=== PATIENT | female | born 1965 | race Caucasian/White ===

== ENCOUNTER 2020-11-16 12:49 | Outpatient (CLI) | payer SELFPAY ==
--- NOTE | 2020-11-17 08:24 | ONC CON_ITS ---
Dr. Jameson New Patient Note Patient: Renee Cano Unit #: [id number]: 1965 Dicatated By: Woody Jameson M.D.Date of Visit: Nov 16, 2020 Onc MED New Patient/Consult Referring Physician: Dr. Roosevelt Mcneill M.D. Chief Complaint: Metastatic malignancy. History of Present Illness: This is a 55-year-old woman who has evidence on imaging studies of metastatic malignancy in multiple sites. She has some COPD and she has previously had multiple episodes of pneumonia. She had presented to the emergency room in [place] on 10/28/2020 with left sciatic pain. She had tenderness in left gluteal area causing reproducible pain in the left thigh. She also complained of right hand weakness, though her exam at that time was unrevealing. She was treated symptomatically with ibuprofen and cyclobenzaprine. She returned to the emergency room on 11/02/2020 with complaints of weakness in the right arm and hand and with associated muscle spasms. She also reported some difficulty speaking. Her noncontrast head CT showed findings suspicious for a potential left occipital infarct. Also noted was bilateral frontoparietal white matter edema with evidence of slight mass-effect and underlying space-occupying lesion was suspected. Chest x-ray showed a 3.4 cm mass in the left midlung which appeared to be consistent with primary lung neoplasm. Her chest CT showed a highly spiculated mass in the left lung centered on the major fissure and involving the upper lobe and superior segment lower lobe. It measured 3.7 x 3.2 cm. A separate distinct nodule in the upper lobe measured 9 mm. A left hilar lymph node was borderline enlarged measuring 1.4 x 0.6 cm. A 16mm enhancing nodule was noted within the medial left breast and a superficial nodule in the upper right breast measured 8 mm. These were concerning for metastases, and there was probable metastatic disease noted in the left adrenal gland. Further evaluation with PET/CT on 11/11/2020 showed a hypermetabolic left upper lobe mass measuring 3.3 x 2.7 cm,, SUV 12.9, and a second satellite nodule in the left upper lobe measuring 8 mm, also FDG positive. Malignant lesions were noted in the breasts bilaterally with the dominant lesion in the medial left breast measuring 1.4 cm, SUV 13.4. There were bilateral adrenal metastases. Also noted were too large complex cystic abdominal masses with the superior mass measuring 14.1 x 8.2 cm and the more inferior lesion measuring 11.2 x 13.7 cm. The latter was noted to have a hypermetabolic component in it's left lateral aspect with SUV 12.8. A malignant implant was noted deep to the left gluteus iván muscle with two bilateral malignant omental implants also noted. She is seen for further management. Her main complaint is the pain in the left lower back radiating down her left leg. At this point she is just managing it with ibuprofen. She also continues to have weakness in her right hand, now to the point that she is no longer able to use it. She has tired and she has very limited activity. ECOG score is three. She still has good appetite. She says she is hungry all the time. Her weight is stable. She has no fever or night sweats. She does not complain of shortness of breath, cough, or chest pain. She is not having nausea. She does have some acid reflux which she has been trying to manage with Rolaids. She was having constipation, but her bowel function is okay now. She has frequent urination. She has no other joint or bone pain. She was having headache in the frontal area, but that has improved now. She is having difficulty sleeping because of the pain. Past Medical History: She has chronic obstructive pulmonary disease and she has had multiple prior episodes of pneumonia. She has had no other ongoing medical illnesses. Past Surgical History: Her surgical/procedural history includes cataract excisions, section x 2, and tubal ligation. Medications: Ibuprofen 1 (200 mg) Capsule Oral four times a day Allergies: predniSONE Social History: Ms. 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. She has a history of smoking 1 pack of cigarettes daily for 40 years. She does not drink alcohol. Family History: Father of liver cancer. Mother with complications following an abdominal surgery. She had a total of 5 brothers and 3 sisters. One brother of throat cancer and another of heart disease. Her remaining brothers all have coronary artery disease. Review Of Symptoms: Constitutional - She has been feeling very tired and she has very limited activity. She still has good appetite. She says she is hungry all the time. Her weight has been stable. She has no fever or night sweats. ECOG score is 3, Eyes - She recently got new glasses, ENMT - No other visual complaints. No hearing loss or tinnitus. No sinus congestion/drainage. No mouth sores. No sore throat or difficulty swallowing, Hematologic/Lymphatic - She has easy bruising, Respiratory - No shortness of breath. No cough. No pleuritic pain or hemoptysis, Cardiovascular - No angina pain. No palpitations, Gastrointestinal - No nausea or vomiting. She has acid reflux, which she has been trying to manage with Rolaids. She has constipation. No blood in the stool or black stools, Genitourinary (F) - No dysuria or hematuria. She has urinary frequency. No urgency or incontinence, Musculoskeletal - She has been having pain in the left lower back radiating down the left leg, Integumentary - No skin rash or other skin changes, Neurologic - She was having headache in the frontal area, that has resolved. No dizziness. She complains that her right hand is weak and feels numb. No other focal neurologic symptoms, Psychiatric - No anxiety or depression. She is having difficulty sleeping due to the pain. Vital Signs: Performed on Nov 16, 2020 15:45: 8, 0, 19.84, 1.40 sq.m, 60 in, 97 %, 95 /min, 18 /min, 105/71 mm(hg), 99 F (HIGH), and 101.6 lbs (HIGH). Physical Examination: Constitutional - She appears generally weak, Eyes - Sclerae nonicteric. Conjunctivae clear, ENMT - There is a slight coating on the tongue. There are no other lesions noted in the oral cavity, Neck - No mass or thyromegaly, Hematologic/Lymphatic - No cervical or clavicular adenopathy, Respiratory - Lungs are clear with some decrease in air movement bilaterally, Cardiovascular - Heart rhythm is regular. There is no murmur, gallop, or rub noted, Breasts - There are small firm nodules palpable in the superior aspect of both breasts. There is no axillary adenopathy noted, Abdomen - Soft and non-tender. Liver and spleen are not enlarged. There is no abdominal mass noted and there is no obvious ascites. There is no inguinal adenopathy, Back/Spine - The spine shows no bony tenderness. There is mild tenderness in the left lower back, Extremities - No edema, Integumentary - No rashes. No suspicious skin lesions noted, Neurologic - There is significant weakness of the right hand. The right leg strength appears to be intact. Lab/Imaging: CBC showed hemoglobin 13.6 g, white blood cell count 13,500, and platelet count 457,000. Comprehensive metabolic profile showed normal renal function with BUN nine and creatinine 0.56 mg/dL. Bilirubin and liver enzymes were normal. Albumin was normal at 3.9 g/dL with calcium 9.8 mg/dL. TSH was normal at 2.54 ???IU/mL. Problem List: 1. Patient with multiple sites of metastatic malignancy. As yet there is no tissue diagnosis, and a definite primary site has not been established. 2. She has weakness in the right hand which is almost certainly due to metastatic brain involvement. 3. She has pretty severe pain in the left lower back radiating down the left leg, also due to metastatic involvement. 4. She has underlying COPD. 5. She has GERD symptoms. Problems Addressed with this Encounter and Plan: Patient with multiple sites of metastatic malignancy. As yet there is no tissue diagnosis, and a definite primary site has not been established. She has pretty severe pain in the left lower back radiating down the left leg, which is clearly due to metastatic involvement. She has weakness in the right hand which is almost certainly due to metastatic brain involvement. I reviewed the PET/CT with the radiologist, and it does appear that the large cystic masses in the abdomen/pelvis region are very suspicious for primary ovarian cancer. The dominant left lung lesion, though, is also suspicious for primary malignancy. The breast lesions would appear to be most likely metastatic, and that may be the easiest source for a biopsy. The gluteal metastatic lesion would also potentially be amenable to needle biopsy. She is scheduled to have a brain MRI tomorrow and I am going to go ahead and schedule for ultrasound directed biopsy of the left breast mass. I will check a CA-125 level when she comes in for the MRI. In the meantime, she will be started on dexamethasone 4 mg 4 times daily and I also will start fluconazole, she does have evidence of oral candidiasis. In addition, she will be given a prescription for pantoprazole 40 mg daily for her GERD symptoms. Recommendations for treatment will depend on the primary site of the malignancy and on complete pathologic analysis, which will include next generation sequencing and PD-L1 expression. However, she is advised that this is a metastatic and incurable malignancy. I reviewed potential options for systemic therapies which may include chemotherapy, targeted therapy, and/or immunotherapy. Radiation may be useful for treating specific sites of disease, occluding the brain and the areas of involvement in the left sacral area. Signed By: Woody Jameson M.D. <<Signature on File>>
== END 2020-11-16 12:50 | disposition home or self-care (01) ==
LOC: ONCMED 13:00
PROVIDERS: PCP Nurse Practitioner Family; Visit Provider Internal Medicine Medical Oncology
DX: C79.9 Secondary malignant neoplasm of unspecified site (principal); C80.1 Malignant (primary) neoplasm, unspecified; R53.1 Weakness; M54.5 Low back pain; J44.9 Chronic obstructive pulmonary disease, unspecified; K21.9 Gastro-esophageal reflux disease without esophagitis
CPT/HCPCS: 99205

== ENCOUNTER 2020-11-17 10:39 | Outpatient (CLI) | payer SELFPAY ==
--- NOTE | 2020-11-17 10:42 | MR_ITS ---
WS: [id number] MRI BRAIN WITH AND WITHOUT CONTRAST HISTORY: LESION OF BRAIN COMPARISON: CT head 11/02/2020 TECHNIQUE: Multiplanar imaging performed through the brain with MultiHance 10 ml's IV. No acute infarct. There are are numerous enhancing metastatic lesions throughout the brain. Supratent orial and infratentorial enhancing lesions. Some of these masses are ring-enhancing and others are so lid with necrotic component centrally. The largest mass with central necrosis and thick asymmetric ri m-enhancing extends over a length of 2.8 cm x 3.6 x 4.5 cm and is centered in the LEFT frontoparietal junction with a large amount of surrounding edema. The edema extends to the lateral ventricle and th ere is mild mass effect on the occipital horn of the ventricle. Several ring-enhancing lesions are no dickson in the cerebellum. These lesions are not hemorrhagic. Metastatic lesions in all lobes of the brai n. Indeterminate for 2 mm metastatic lesion in the LEFT hannah. No inferior displacement of cerebellar tonsils. There is mild mass effect upon the ventricles. No mid line shift. Temporal horns are not dilated. Paranasal sinuses: Mild mucoperiosteal thickening in the posterior RIGHT mastoid air cells. Mastoid air cells: Normal. Calvarium and scalp: Normal. MR/MR head wo/w con [id number] IMPRESSION: 1. Innumerable metastatic lesions within the brain as described above. These r paulo in size from a few millimeters in diameter with the largest mass in the LE FT frontoparietal region measuring 2.8 x 3.6 x 4.5 cm. 2. Large amount of surrounding edema involving the larger metastatic lesions. No midline shift at this time. There is very mild mass effect upon the lateral ventricles. Notified Carmenza Oropeza at 11/17/2020 12:[address] Jameson at 11/17/2020 12:15 PM.
[2020-11-17] MEDS: gadobenate dimeglumine 20 mL vial IV (11:36)
[2020-11-17 11:43] LABS: INR 0.97 (0.8-1.2)
[2020-11-17 12:02] LABS: CA 125 336.8 U/mL (0-35)
== END 2020-11-17 10:40 | disposition home or self-care (01) ==
LOC: ONCMED 10:41
PROVIDERS: Internal Medicine Medical Oncology; PCP Nurse Practitioner Family; Visit Provider Nurse Practitioner Family
DX: G93.9 Disorder of brain, unspecified (principal)
CPT/HCPCS: 36415; 70553; 85610; 86304; A9577

== ENCOUNTER 2020-11-21 06:03 | Outpatient (RCR) | payer SELFPAY ==
--- NOTE | 2020-11-20 15:47 | N.ONRAD NP_ITS ---
Radiation Oncology Consultation Patient Name: Renee Cano Date of : 1965 Date of Service: 11/20/2020 Attending Physician: Yemi Archuleta M.D. Renee Cano was seen in consultation this afternoon at the request of Woody Jameson M.D. for consideration of palliative cranial radiotherapy for the management of a newly diagnosed probable lung cancer with brain metastases. She was evaluated on October 28, 2020 at the [facility] Emergency Department with muscle spasms of the right hand. She was discharged with follow-up instructions to obtain an appointment with her primary care physician. She returned to the emergency department on November 02, 2020 with right upper extremity weakness with associated spasms. Neurological exam identified a pronator drift. A CT of the head without contrast demonstrated bilateral white matter edema, left occipital edema, and right temporal lobe edema with subtle mass-effect noted. A chest radiograph identified a 3.3 cm mass in the left hilar region and a 1 cm nodule in the left upper lobe of the lung. A CT of the chest revealed a 3.7 cm x 3.2 cm spiculated mass and a 9 mm nodule within the left upper lobe of the lung, a left hilar lymph node measuring 1.4 cm, a 1.6 cm enhancing nodule within the left breast, and 8 mm nodule in the right breast, hypoattenuating hepatic lesions likely cysts, and a 2.6 cm left adrenal gland mass. A PET CT performed on November 11, 2020 confirmed a 3.3 cm left upper lobe mass with a maximum SUV of 12.9, a satellite nodule measuring 8 mm with FDG avidity, a 1.4 cm left breast lesion with a (SUV 13.4), a 7 mm right breast lesion (SUV 6.3), bilateral adrenal metastases, abdominal masses measuring 14.1 cm x 8.2 cm and 11.2 cm x 13.7 cm (SUV 12.8), omental implants, and a left gluteal implant. A CA-125 level was 330 6.8U/mL (normal less than 35 U/mL). An MRI of the brain obtained on November 17, 2020 confirmed numerous enhancing metastatic lesions with the largest mass measuring 2.8 cm x 3.6 cm x 4.5 cm left frontoparietal region. Cerebral edema was noted surrounding the larger metastases. The patient was evaluated for palliative cranial radiotherapy. Following a discussion concerning Ms. Cano??? MRI brain, an attempt at palliative cranial radiotherapy is warranted. I would recommend a two week course of radiotherapy. A computed tomographic radiotherapy planning scan in the treatment position will be performed to identify the clinical tumor volume. She has been prescribed a glucocorticoid for cerebral edema and a proton pump inhibitor prophylactically. The potential toxicities of brain radiotherapy were reviewed. The patient has verbalized understanding would like to proceed as recommended. The patient???s treatment plan was discussed with Woody Jameson M.D. Signed by: Dr. Yemi Archuleta 11/21/2020 10:41:16 AM
--- NOTE | 2020-11-21 | CT_ITS ---
Radiation Therapy Planning CT images; total exam DLP: 684.83 mGy-cm MTDD
== END 2020-11-22 23:59 | disposition home or self-care (01) ==
LOC: ONCMED 06:03
PROVIDERS: PCP Nurse Practitioner Family; Visit Provider Radiology Radiation Oncology
DX: Z51.0 Encounter for antineoplastic radiation therapy (principal); C79.71 Secondary malignant neoplasm of right adrenal gland; C79.72 Secondary malignant neoplasm of left adrenal gland; C79.31 Secondary malignant neoplasm of brain; Z79.899 Other long term (current) drug therapy
CPT/HCPCS: 77290; 77334; 99205

== ENCOUNTER 2020-11-24 07:23 | Outpatient (CLI) | payer MEDICAID, SELFPAY ==
--- NOTE | 2020-11-24 07:39 | US_ITS ---
WS: [id number] ULTRASOUND-GUIDED LEFT BREAST BIOPSY HISTORY: Secondary malignant neoplasm of other specified sites. PET/CT positive lesion in each breast. The LEFT breast mass will be targeted for biopsy. LEFT breast mass at 10:00, 1 cm from the nipple. There is an irregular hypoechoic mass at 10:00 measuring 1.4 x 1 .0 x 1.5 cm. COMPARISON: None. Procedure, risks and complications are explained to the patient. Medications are reviewed. Consent is obtained. The mass in the LEFT breast is localized with ultrasound. Skin is cleansed with ChloraPrep and anesth etized with 1% buffered lidocaine. Small dermatome is made. Under sterile conditions mass is biopsied with a 14-gauge Achieve needle. Multiple core biopsies are performed. Material placed in formalin an d sent to pathology for review. No complications encountered. Breast tissue marker (Bard ultrasound enhanced ribbon): None. Patient left the radiology suite with no complications. Patient is instructed to return to [facility] or [facility] with any concerns. US/[place] [id number] IMPRESSION: 1. Uncomplicated core needle biopsy LEFT breast mass at 10:00. PATHOLOGY: Poorly differentiated carcinoma, favor metastasis. Please refer to aayush cochran and pathology report. RECOMMENDATION: Follow-up with oncology.
== END 2020-11-24 07:24 | disposition home or self-care (01) ==
PROVIDERS: PCP Nurse Practitioner Family; Visit Provider Internal Medicine Medical Oncology
DX: N64.89 Other specified disorders of breast (principal); C50.212 Malignant neoplasm of upper-inner quadrant of left female breast
CPT/HCPCS: 19083; 88305

== ENCOUNTER 2020-12-18 05:43 | Outpatient (RCR) | payer MEDICAID, SELFPAY ==
--- NOTE | 2020-11-28 14:35 | ONCRAD TMN_ITS ---
Radiation Oncology Treatment Management Note Patient Name: Renee Cano Date of : 1965 Date of Service: 11/28/2020 Attending Physician: Yemi Archuleta M.D. Renee Cano is a 55 year old white female recently diagnosed with a probable lung cancer and brain metastases. An MRI of the brain obtained on November 17, 2020 confirmed numerous enhancing metastatic lesions with the largest mass measuring 2.8 cm x 3.6 cm x 4.5 cm left frontoparietal region. Cerebral edema was noted surrounding the larger metastases. The patient has received 9 Gy of a prescribed 30 Laguerre with a 3-dimensional conformal radiotherapy plan utilizing a half beam block treatment technique with opposed lateral portal erickson. Upon review of systems, she denied neurological symptoms. On physical examination, the patient weighed 100 lbs. Her temperature was 99.1 ???F with a blood pressure of 138/97 mmHg. Her pulse was 98 bpm and the respiratory rate was 18. Cranial nerves were intact. There was no thrush in the oropharynx. Continue whole brain radiotherapy as prescribed. Reduce dexamethasone dosage to 4 mg q am. Signed by: Dr. Yemi Archuleta 11/28/2020 2:33:24 PM
--- NOTE | 2020-12-05 13:40 | ONCRAD TMN_ITS ---
Radiation Oncology Treatment Management Note Patient Name: Renee Cano Date of : 1965 Date of Service: 12/05/2020 Attending Physician: Yemi Archuleta M.D. Renee Cano is a 55 year old white female recently diagnosed with a probable lung cancer and brain metastases. An MRI of the brain obtained on November 17, 2020 confirmed numerous enhancing metastatic lesions with the largest mass measuring 2.8 cm x 3.6 cm x 4.5 cm left frontoparietal region. Cerebral edema was noted surrounding the larger metastases. The patient has received 21 Gy of a prescribed 30 Laguerre with a 3-dimensional conformal radiotherapy plan utilizing a half beam block treatment technique with opposed lateral portal erickson. Upon review of systems, she denied neurological symptoms. On physical examination, the patient weighed 94 lbs. Her temperature was 98.8 ???F with a blood pressure of 129/95 mmHg. Her pulse was 112 bpm and the respiratory rate was 18. Cranial nerves were intact. Continue whole brain radiotherapy as planned. Signed by: Dr. Yemi Archuleta 12/05/2020 1:38:18 PM
--- NOTE | 2020-12-21 15:20 | ONC FU_ITS ---
Dr. Jameson Patient Follow-Up Note Patient: Renee Cano Unit #: [id number]: 1965 Dicatated By: Woody Jameson M.D.Date of Visit:Dec 18, 2020 Onc Med Follow-up/Prog Note Chief Complaint: Metastatic malignancy. History of Present Illness: This is a 55-year-old woman who has evidence on imaging studies of metastatic malignancy in multiple sites. She has some COPD and she has previously had multiple episodes of pneumonia. She had presented to the emergency room in [place] on 10/28/2020 with left sciatic pain. She had tenderness in left gluteal area causing reproducible pain in the left thigh. She also complained of right hand weakness, though her exam at that time was unrevealing. She was treated symptomatically with ibuprofen and cyclobenzaprine. She returned to the emergency room on 11/02/2020 with complaints of weakness in the right arm and hand and with associated muscle spasms. She also reported some difficulty speaking. Her noncontrast head CT showed findings suspicious for a potential left occipital infarct. Also noted was bilateral frontoparietal white matter edema with evidence of slight mass-effect and underlying space-occupying lesion was suspected. Chest x-ray showed a 3.4 cm mass in the left midlung which appeared to be consistent with primary lung neoplasm. Her chest CT showed a highly spiculated mass in the left lung centered on the major fissure and involving the upper lobe and superior segment lower lobe. It measured 3.7 x 3.2 cm. A separate distinct nodule in the upper lobe measured 9 mm. A left hilar lymph node was borderline enlarged measuring 1.4 x 0.6 cm. A 16mm enhancing nodule was noted within the medial left breast and a superficial nodule in the upper right breast measured 8 mm. These were concerning for metastases, and there was probable metastatic disease noted in the left adrenal gland. Further evaluation with PET/CT on 11/11/2020 showed a hypermetabolic left upper lobe mass measuring 3.3 x 2.7 cm,, SUV 12.9, and a second satellite nodule in the left upper lobe measuring 8 mm, also FDG positive. Malignant lesions were noted in the breasts bilaterally with the dominant lesion in the medial left breast measuring 1.4 cm, SUV 13.4. There were bilateral adrenal metastases. Also noted were too large complex cystic abdominal masses with the superior mass measuring 14.1 x 8.2 cm and the more inferior lesion measuring 11.2 x 13.7 cm. The latter was noted to have a hypermetabolic component in it's left lateral aspect with SUV 12.8. A malignant implant was noted deep to the left gluteus iván muscle with two bilateral malignant omental implants also noted. I had seen her initially on 11/16/2020. Given the extent of her disease, she appeared to have very poor prognosis, but she was motivated to have treatment. As such, she began on dexamethasone 4 mg 4 times daily, and she was referred to Dr. Archuleta for palliative whole brain radiation. She completed treatment on 12/08/2020 to a total dose of 3000 cGy. In the meantime, she underwent biopsy of the left breast mass on 11/24/2020. This was presumed clinically to be a metastatic lesion. 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 The tumor was strongly positive for CA-125. It was ER/TX negative, and it was also negative for overexpression of HER-2/kayla. She is seen now for a follow-up visit. She has been feeling somewhat better generally. She has continued on dexamethasone, with the dosage tapered to 4 mg twice daily. She says she has a lot of energy, but her activity is still limited. She is able to do some light work now. ECOG score is 1. She has good appetite. She has no fever or night sweats. She has noted improvement in her vision. She says her right ear feels stopped up. She has not had sore mouth or throat. She has sinus drainage and cough. She does not complain of shortness of breath. She has been having occasional pain in her breast. She has no other chest pain. She occasionally has nausea and she has occasional acid reflux. Bowel function has been okay. She has frequent urination. She says her knees hurt at times. She has no other joint or bone pain. She is not having headache. She sometimes has dizziness. She has a little numbness in her fingers. She previously started Keppra for suspected focal seizures in the right arm, and she has since then had no further seizure activity. Medications: Decadron 1 (4 mg) Tablet Oral daily, Fluconazole 1 (100 mg) Tablet Oral daily, Ibuprofen 1 (200 mg) Capsule Oral four times a day, Keppra 1 (500 mg) Tablet Oral b.i.d., Pantoprazole Sodium 1 (40 mg) Tablet, enteric coated Oral daily Allergies: predniSONE Vital Signs: Performed on Dec 18, 2020 11:40 Height - 60.00 in Weight - 95 lbs (HIGH) BSA - 1.36 sq.m BMI - 18.55 Temperature - 98.4 F Pulse - 117 /min (HIGH) Respiration - 16 /min BP - 130/87 mm(hg) O2 Sat - 96 % Pain - 0 Physical Examination: Constitutional - She still appears somewhat weak generally, but improved, Eyes - Sclerae nonicteric. Conjunctivae clear, ENMT - The right ear canal is occluded with cerumen. There is a slight coating on the tongue. There are no other lesions noted in the oral cavity, Hematologic/Lymphatic - No cervical, clavicular, or axillary adenopathy, Respiratory - Lungs are clear with some decrease in air movement bilaterally, Cardiovascular - Heart rhythm is regular. There is no murmur, gallop, or rub noted, Abdomen - Soft. Liver and spleen are not enlarged. There is no abdominal mass noted and there is no obvious ascites. There is no inguinal adenopathy, Extremities - No edema. There are purpuric lesions on both arms, Neurologic - No focal neurologic deficits noted. Lab/Imaging: Test performed on Nov 17, 2020 11:05 PT 13.20 SECONDS INR 0.97 CA-125 336.8 U/mL Problem List: 1. Poorly differentiated carcinoma with multiple sites of metastatic involvement. Clinical and pathologic findings are most consistent with ovarian primary malignancy. 2. She had multiple metastatic brain lesions at initial presentation and there was associated right arm weakness and suspected focal seizures in the right arm. 3. She has underlying COPD. 5. GERD. Problems Addressed with this Encounter and Plan: Patient with poorly differentiated carcinoma with multiple sites of metastatic involvement, including multiple brain metastases. There was also CT evidence of 2 large cystic abdominal/pelvic masses, and there were additional sites of suspected metastatic involvement including several lesions in the left lung, bilateral breast masses, bilateral adrenal masses, and omental implants. 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 The tumor was ER/TX negative and it was negative for overexpression of HER-2/kayla. She was given palliative whole brain radiation, completed on 12/08/2020 to a total dose of 3000 cGy. She has had some clinical improvement with the radiation. She is seen now for consideration of systemic therapy. We discussed the fact that ovarian cancer does have a high probability of responding to chemotherapy, but treatment in this situation would be strictly palliative. It also would have the limitation of not being effective for treating [employer] metastatic disease. At this point she does appear to be interested in pursuing further treatment, given those limitations, she is going to give it some additional consideration. In the meantime, I will be requesting an next generation sequencing study to screen for other potential treatment options. She will now reduce dexamethasone to 4 mg daily. She will continue prophylaxis with fluconazole 100 mg daily. She will also continue Keppra 500 mg twice daily. Signed By: Woody Jameson M.D. <<Signature on File>>
== END 2020-12-23 23:59 | disposition home or self-care (01) ==
LOC: ONCMED 05:43
PROVIDERS: PCP Nurse Practitioner Family; Visit Provider Internal Medicine Medical Oncology
DX: Z51.0 Encounter for antineoplastic radiation therapy (principal); C56.9 Malignant neoplasm of unspecified ovary; C79.31 Secondary malignant neoplasm of brain; C79.89 Secondary malignant neoplasm of other specified sites; R53.1 Weakness; J44.9 Chronic obstructive pulmonary disease, unspecified; K21.9 Gastro-esophageal reflux disease without esophagitis; Z79.899 Other long term (current) drug therapy
CPT/HCPCS: 77280; 77295; 77300; 77334; 77336; 77412; 77417; 99215